=== PATIENT | male | born 2005 | race Caucasian/White ===

== ENCOUNTER 2023-10-22 15:00 | Inpatient (IN) | payer OTHER ==
[2023-10-23] MEDS ORDERED: DEXAMETHASONE SOD PHOSPHATE 10 MG/ML 1 ML VIAL ONE ×2 (08:39→10:47)
[2023-10-23] MEDS ORDERED: PANTOPRAZOLE 40 MG TABLET PO ONE ×2 (08:39→10:47)
[2023-10-23] MEDS ORDERED: DEXTROSE 5% IN WATER 50 ML BAG ONE ×2 (08:39→10:47)
== END 2023-10-24 13:30 | disposition home or self-care (01) | DRG 661 ==
LOC: 3SCARD 15:00
PROVIDERS: ADMIT Internal Medicine; ATTEND Internal Medicine
DX: D69.3 Immune thrombocytopenic purpura (principal)
CPT/HCPCS: 86038; 86431; 93005; 96374; 99284